=== PATIENT | male | born 1985 | race Caucasian/White ===

== ENCOUNTER 2020-09-16 05:48 | Emergency (ER) | payer OTHER ==
[2020-09-16] MEDS ORDERED: EPIPEN 2-P0.3 MG/0.3 SC (06:38)
[2020-09-16] MEDS ORDERED: PROAIR HFA8.5 GM INH (06:55)
== END 2020-09-16 06:57 | disposition home or self-care (01) ==
LOC: FER 05:48
DX: L50.0 Allergic urticaria (principal); R06.2 Wheezing; F17.210 Nicotine dependence, cigarettes, uncomplicated
CPT/HCPCS: 94640; 94664; J0171; J1200; J2930